=== PATIENT | male | born 1980 | race Caucasian/White ===

== ENCOUNTER 2018-05-12 19:32 | Emergency (ER) | payer SELFPAY ==
[2018-05-12 20:03] VITALS: BP 119/72; PULSE 91; RESP 16; TEMP 98.4; O2SAT 98
== END 2018-05-12 20:10 | disposition home or self-care (01) | DRG 153 ==
LOC: ED 19:32
DX: J06.9 Acute upper respiratory infection, unspecified (principal)
CPT/HCPCS: 99282